=== PATIENT | male | born 1995 | race Caucasian/White ===

== ENCOUNTER 2018-08-01 19:09 | Emergency (ER) | payer MEDICAID, OTHER ==
[~2018-08-01] VITALS: Ht 180.3 cm; Wt 124.7 kg
[2018-08-01 19:59] VITALS: BP 136/88
--- NOTE | 2018-08-01 20:05 | NUR ---
TO LOBBY A/W BED, AMB, VSS ERMD NOTED, NASAL, THROAT SWAB DONE
--- NOTE | 2018-08-01 20:40 | NUR ---
PT TAKEN TO BED 12
--- NOTE | 2018-08-01 20:40 | NUR ---
PT PRESENTS TO ED WITH GENERALZIED BODY ACHES AND PAIN WITH SWALLOWING X3 DAYS. TONGUE WHITE, TONSILS EDEMITOUS WITH WHITE PATCHES, ROOF OF MOUTH PATCHY PALE WHITE. VSS. AFEBRILE. A&OX4. POSITIONED IN BED FOR COMFORT. ACCOMPANIED BY MOTHER. ER MD AWARE. CONTINUE TO MONITOR.
[2018-08-01 22:22] VITALS: BP 136/88
--- NOTE | 2018-08-01 22:22 | NUR ---
Patient discharged with v/s stable. Written and verbal after care instructions given and explained. Patient alert, oriented and verbalized understanding of instructions. Ambulatory with steady gait. All questions addressed prior to discharge. ID band removed. Patient advised to follow up with PMD. Rx of Diflucan, Motrin, Amoxicillin, and Prednisone given. Patient educated on indication of medication including possible reaction and side effects. Opportunity to ask questions provided and answered.
== END 2018-08-01 22:22 | disposition home or self-care (01) ==
LOC: MED 19:09
DX: J03.90 Acute tonsillitis, unspecified (principal); B37.9 Candidiasis, unspecified; M79.10 Myalgia, unspecified site
CPT/HCPCS: 36415; 87081; 87804; 99283